=== PATIENT | male | born 1990 | race Caucasian/White ===

== ENCOUNTER 2019-09-05 11:51 | Emergency (ER) | payer OTHER ==
[~2019-09-05] VITALS: Ht 180.3 cm; Wt 115.7 kg
[~2019-09-05 11:51] MED LIST: COUMADIN5 MG; [UNRECOGNIZED DRUG - REMARK]
[2019-09-05] MEDS ORDERED: ZITHROMAX500 MG PO (17:29)
[2019-09-05] MEDS ORDERED: TUSNEL LIQUID178 ML PO (17:29)
== END 2019-09-05 17:35 | disposition home or self-care (01) ==
LOC: ER 11:51
DX: B34.9 Viral infection, unspecified (principal)

== ENCOUNTER 2022-01-14 07:49 | Emergency (ER) | payer OTHER ==
[~2022-01-14] VITALS: Ht 180.3 cm; Wt 120.2 kg
[~2022-01-14 07:49] MED LIST changes: +TUSNEL LIQUID178 ML PO; +ZITHROMAX500 MG PO
== END 2022-01-14 18:14 | disposition home or self-care (01) ==
LOC: ER 07:49
DX: S86.012A Strain of left Achilles tendon, initial encounter (principal); X58.XXXA Exposure to other specified factors, initial encounter; Y93.67 Activity, basketball; Y92.9 Unspecified place or not applicable; Y99.9 Unspecified external cause status; Z88.2 Allergy status to sulfonamides
CPT/HCPCS: 73721

== ENCOUNTER → 2022-01-18 | Emergency (ER) | payer OTHER ==
[~2022-01-18] VITALS: Ht 165.1 cm; Wt 120.2 kg
--- NOTE | 2022-01-18 11:45 | NUR ---
SE RECIB EPTE ALERTA Y ORIENTADO X3,REFIERE QUE LO REFIRIO LA GAGAN. DC PARA OPERACION DEL TENDON DE ROSALINO,ESTA NPO.REFIERE PTE QUE ESO LE PASO JUGANDO BALONCESTOEN EL PIE ELOISE.
--- NOTE | 2022-01-18 13:02 | NUR ---
PACIENTE ALERTA Y ORIENTADO X3 . ES EVALUADO POR DR GOODRICH CUAL ORDENA TRATAMIENTO MEDICO. SE EJECUTAN ORDENES MEDICAS Y SE ORIENTA SOBRE TRATAMIENTO MEDICO, ROSIE REFIERE ENTENDER. PENDIENTE A ESTUDIO Y CONSULTA
== END | disposition home or self-care (01) ==
LOC: ER 11:19 → SEC-K 13:47
DX: S86.012A Strain of left Achilles tendon, initial encounter (principal); X58.XXXA Exposure to other specified factors, initial encounter; Y93.67 Activity, basketball; Y92.89 Other specified places as the place of occurrence of the external cause; Y99.9 Unspecified external cause status; U07.1 COVID-19; A49.3 Mycoplasma infection, unspecified site; Z88.2 Allergy status to sulfonamides

== ENCOUNTER → 2022-07-01 | Emergency (ER) | payer OTHER | END | disposition home or self-care (01) | LOC: ER 05:42 | DX: N50.811 Right testicular pain (principal); N45.1 Epididymitis; Z88.2 Allergy status to sulfonamides ==